=== PATIENT | male | born 1965 | race Hispanic/Latino ===

== ENCOUNTER 2018-06-18 17:47 | Emergency (ER) | payer BC ==
[~2018-06-18] VITALS: Ht 160 cm; Wt 85.7 kg
--- OUTSIDE RECORDS SUMMARY | 2018-06-18 17:50 | XMS REPORT ---
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 Allergies, Adverse Reactions, Alerts This patient has no known allergies or adverse reactions. Medications This patient has no known medications.
--- OUTSIDE RECORDS SUMMARY | 2018-06-18 17:50 | XMS REPORT | Summary of Care ---
Author Author [facility] Organization [facility] Address Unknown Phone Unavailable Encounter MARYLOU Anders(TONE) [id number] Date(s): 10/15/17 - 10/15/17 [facility] [address] [place] [address]- [phone] Encounter Diagnosis Paresthesia (Discharge Diagnosis) - 10/15/17 Discharge Disposition: Home or Self Care Attending Physician: Claire Lassiter MD Vital Signs 1 2 3 Most recent to oldest [Reference Range]: 98.4 DegF (10/15/17 12:44 PM) Temperature Oral [96.4-99.1 DegF] 140/93 mmHg (10/15/17 6:26 PM) 138/92 mmHg (10/15/17 5:30 PM) 145/101 mmHg *HI* (10/15/17 4:39 PM) Blood Pressure [90-140/60-90 mmHg] 23 BRMIN *HI* (10/15/17 6:26 PM) 23 BRMIN *HI* (10/15/17 5:30 PM) 21 BRMIN *HI* (10/15/17 4:39 PM) Respiratory Rate [14-20 BRMIN] 95 bpm (10/15/17 12:44 PM) Peripheral Pulse Rate [60-100 bpm] 81.818 kg (10/15/17 12:44 PM) Weight Problem List No data available for this section Allergies, Adverse Reactions, Alerts Substance Reaction Severity Status NKDA Active Medications Saline Flush 0.9% 10 mL, Route: IVP, Drug Form: INJ, Dosing Weight 81.818, kg, PRN, PRN Line Flush , Start date: 10/15/17 12:50:00 CDT, Duration: 30 day, Stop date: 11/14/17 12:49 :00 CDT Notes: (Same as: BD Posiflush) Start Date: 10/15/17 Stop Date: 10/15/17 Status: Discontinued Results ELECTROLYTES Most recent to 1 oldest [Reference Range]: Sodium Lvl [135-145 141 mEq/L mEq/L] (10/15/17 1:49 PM) Potassium Lvl 4.0 mEq/L [3.5-5.1 mEq/L] (10/15/17 1:49 PM) Chloride Lvl [95-109 105 mEq/L mEq/L] (10/15/17 1:49 PM) CO2 [24-32 mEq/L] 28 mEq/L (10/15/17 1:49 PM) AGAP [10.0-20.0 12.0 mEq/L mEq/L] (10/15/17 1:49 PM) CHEM PANEL Most recent to 1 oldest [Reference Range]: Creatinine Lvl 0.66 mg/dL [0.50-1.40 mg/dL] (10/15/17 1:49 PM) eGFR 112 mL/min/1.73m2 1 *NA* (10/15/17 1:49 PM) BUN [7-22 mg/dL] 16 mg/dL (10/15/17 1:49 PM) B/C Ratio [6-25] 24 (10/15/17 1:49 PM) Glucose Lvl [70-99 274 mg/dL mg/dL] *HI* (10/15/17 1:49 PM) Total Protein 7.0 g/dL [6.4-8.4 g/dL] (10/15/17 1:49 PM) Albumin Lvl [3.5-5.0 3.5 g/dL g/dL] (10/15/17 1:49 PM) Globulin [2.7-4.2 3.5 g/dL g/dL] (10/15/17 1:49 PM) A/G Ratio [0.7-1.6] 1.0 (10/15/17 1:49 PM) Calcium Lvl 8.6 mg/dL [8.5-10.5 mg/dL] (10/15/17 1:49 PM) ALT [0-65 unit/L] 30 unit/L (10/15/17 1:49 PM) AST [0-37 unit/L] 14 unit/L (10/15/17 1:49 PM) Alk Phos [39-136 154 unit/L unit/L] *HI* (10/15/17 1:49 PM) Bili Total [0.2-1.3 0.4 mg/dL mg/dL] (10/15/17 1:49 PM) 1Result Comment: The eGFR is calculated using the CKD-EPI formula. In most young, healthy individuals the eGFR will be >90 mL/min/1.73m2. The eGFR declines with age. An eGFR of 60-89 may be normal in some populations, particularly the elderly, for whom the CKD-EPI formula has not been extensively validated. Use of the eGFR is not recommended in the following populations: Individuals with unstable creatinine concentrations, including patients and those with serious co-morbid conditions. Patients with extremes in muscle mass or diet. The data above are obtained from the National Kidney Disease Education Program ( NKDEP) which additionally recommends that when the eGFR is used in patients with extremes of body mass index for purposes of drug dosing, the eGFR should be mul tiplied by the estimated BMI. CARDIAC ENZYMES Most recent to 1 oldest [Reference Range]: Total CK [12-191 68 unit/L unit/L] (10/15/17 1:49 PM) Troponin-I <0.02 ng/mL [0.00-0.40 ng/mL] (10/15/17 1:49 PM) URINE AND STOOL Most recent to 1 oldest [Reference Range]: UA Turbidity [Clear] Clear (10/15/17 4:16 PM) UA Color Ltyellow *NA* (10/15/17 4:16 PM) UA pH [5.0-8.0] 6.0 (10/15/17 4:16 PM) UA Spec Grav 1.025 [<=1.030] (10/15/17 4:16 PM) UA Glucose [Negative 500 mg/dL mg/dL] *ABN* (10/15/17 4:16 PM) UA Blood [Negative] Negative (10/15/17 4:16 PM) UA Ketones [Negative Negative mg/dL mg/dL] *NA* (10/15/17 4:16 PM) UA Protein [Negative Negative mg/dL mg/dL] (10/15/17 4:16 PM) UA Urobilinogen <=1.0 mg/dL [0.1-1.0 mg/dL] *NA* (10/15/17 4:16 PM) UA Bili [Negative] Negative *NA* (10/15/17 4:16 PM) UA Leuk Est Negative [Negative] (10/15/17 4:16 PM) UA Nitrite Negative [Negative] (10/15/17 4:16 PM) UA WBC [0-5 /HPF] <1 /HPF (10/15/17 4:16 PM) UA Sq Epi None Seen *NA* (10/15/17 4:16 PM) HEMATOLOGY Most recent to 1 oldest [Reference Range]: WBC [3.7-10.4 K/CMM] 7.8 K/CMM (10/15/17 1:49 PM) RBC [4.70-6.10 5.22 M/CMM M/CMM] (10/15/17 1:49 PM) Hgb [14.0-18.0 g/dL] 15.3 g/dL (10/15/17 1:49 PM) Hct [42.0-54.0 %] 45.8 % (10/15/17 1:49 PM) MCV [80.0-94.0 fL] 87.8 fL (10/15/17 1:49 PM) MCH [27.0-31.0 pg] 29.3 pg (10/15/17 1:49 PM) MCHC [32.0-36.0 33.4 g/dL g/dL] (10/15/17 1:49 PM) RDW [11.5-14.5 %] 13.6 % (10/15/17 1:49 PM) MPV [7.4-10.4 fL] 9.7 fL (10/15/17 1:49 PM) Platelet [133-450 217 K/CMM K/CMM] (10/15/17 1:49 PM) Segs [45.0-75.0 %] 53.4 % (10/15/17 1:49 PM) Lymphocytes 35.4 % [20.0-40.0 %] (10/15/17 1:49 PM) Monocytes [2.0-12.0 6.7 % %] (10/15/17 1:49 PM) Eosinophils [0.0-4.0 4.0 % %] (10/15/17 1:49 PM) Basophils [0.0-1.0 0.5 % %] (10/15/17 1:49 PM) Segs-Bands # 4.2 K/CMM [1.5-8.1 K/CMM] (10/15/17 1:49 PM) Lymphocytes # 2.8 K/CMM [1.0-5.5 K/CMM] (10/15/17 1:49 PM) Monocytes # [0.0-0.8 0.5 K/CMM K/CMM] (10/15/17 1:49 PM) Eosinophils # 0.3 K/CMM [0.0-0.5 K/CMM] (10/15/17 1:49 PM) RBC Morph Normal (10/15/17 1:49 PM) Plt Morph Normal (10/15/17 1:49 PM) PT [12.0-14.7 12.0 seconds seconds] (10/15/17 1:49 PM) INR [0.85-1.17] 0.89 (10/15/17 1:49 PM) PTT [22.9-35.8 29.2 seconds seconds] (10/15/17 1:49 PM) Immunizations No data available for this section Procedures No data available for this section Social History Social History Type Response Smoking Status Never smoker; Exposure to Tobacco Smoke None; Cigarette Smoking Last 365 Days No; Reg Smoking Cessation Counseling No entered on: 10/15/17 Assessment and Plan No data available for this section
--- OUTSIDE RECORDS SUMMARY | 2018-06-18 17:50 | XMS REPORT | Continuity of Care Document ---
Author Author [facility] Address Unknown Phone Unavailable Problems Problem Status Onset Date Classification Date Reported Comments Source IMBALANCE, RIGOBERTO CAROTID BRUITS Active 10/16/2017 [facility] Paresthesia 10/15/2017 10/18/2017 [facility] POSSIBLE STROKE Active 10/15/2017 [facility] RIGHT HAND Active 12/17/2016 [facility] [place] Medications Medication Details Route Status Patient Instructions Ordering Provider Order Date Source Saline Flush 0.9% 10 mL, Route: IVP, Drug Form: INJ, Dosing Weight 81.818, kg, PRN, PRN Line Flush, Start date: 10/15/17 12:50:00 CDT, Duration: 30 day, Stop date: 11/14/17 12:49:00 CDTNotes: (Same as: BD Posiflush) Inactive 10/15/2017 [facility] Allergies, Adverse Reactions, Alerts Substance Category Reaction Severity Reaction type Status Date Reported Comments Source Immunizations Immunization Date Given Site Status Last Updated Comments Source Results Order Name Results Value Reference Range Date Interpretation Comments Source Carotid artery Doppler bilat US Carotid artery Doppler bilat US Clinical Indication: - bruit; Comparison: None TECHNIQUE: Hurley-scale, color Doppler and spectral Doppler of the carotid arteries was performed. Any reported ICA stenoses indirectly reference the distal internal carotid diameter as the denominator for the stenosis measurement, utilizing consensus panel criteria. FINDINGS: RIGHT: No significant plaque ICA PSV 52 cm/sec CCA PSV 83 cm/sec ICA/CCA ratio 0.6 Vertebral flow is antegrade. External carotid artery is patent. LEFT: No significant plaque ICA PSV 46 cm/sec CCA PSV 84 cm/sec ICA/CCA ratio 0.6 Vertebral flow is antegrade. External carotid artery is patent. IMPRESSION: 1. RIGHT: ICA stenosis <50 % by velocity criteria. 2. LEFT: ICA stenosis <50 % by velocity criteria. Consensus panel Doppler US criteria for diagnosis of ICA stenosis: Stenosis (%) ICA PSV (cm/sec) ICA/CCA ratio <50 <125 <2.0 50-69 125-230 2.0-4.0 >70 but less than >230 >4.0 near occlusion Near occlusion High, low, or Variable undetectable : [id number] 10/19/2017 - - Read by: Fly Knox MD Dictated Date/time: 10/19/17 09:36 Electronically Signed by: Fly Knox MD 10/19/17 09:44 FINAL REPORT [facility] URINE AND STOOL UA Urobilinogen <=1.0 mg/dL 0.1 - 1.0 10/15/2017 [facility] URINE AND STOOL UA Color Ltyellow 10/15/2017 [facility] URINE AND STOOL UA Leuk Est Negative (10/15/17 4:16 PM) Negative 10/15/2017 [facility] URINE AND STOOL UA WBC null 0 - 5 10/15/2017 [facility] URINE AND STOOL UA Sq Epi None Seen 10/15/2017 [facility] URINE AND STOOL UA Nitrite Negative (10/15/17 4:16 PM) Negative 10/15/2017 [facility] URINE AND STOOL UA Bili Negative *NA* (10/15/17 4:16 PM) Negative 10/15/2017 [facility] URINE AND STOOL UA Blood Negative (10/15/17 4:16 PM) Negative 10/15/2017 [facility] URINE AND STOOL UA Glucose 500 mg/dL Negative mg/dL 10/15/2017 [facility] URINE AND STOOL UA pH 6.0 5.0 - 8.0 10/15/2017 [facility] URINE AND STOOL UA Spec Grav 1.025 <=1.030 10/15/2017 [facility] URINE AND STOOL UA Turbidity Clear (10/15/17 4:16 PM) Clear 10/15/2017 [facility] URINE AND STOOL UA Protein Negative mg/dL Negative mg/dL 10/15/2017 [facility] URINE AND STOOL UA Ketones Negative mg/dL Negative mg/dL 10/15/2017 [facility] CARDIAC ENZYMES Troponin-I null 0.00 - 0.40 10/15/2017 [facility] CARDIAC ENZYMES Total CK 68 unit/L 12 - 191 10/15/2017 [facility] ELECTROLYTES AGAP 12.0 meq/L 10.0 - 20.0 10/15/2017 [facility] ELECTROLYTES B/C Ratio 24 6 - 25 10/15/2017 [facility] ELECTROLYTES A/G Ratio 1.0 0.7 - 1.6 10/15/2017 [facility] ELECTROLYTES Globulin 3.5 g/dL 2.7 - 4.2 10/15/2017 [facility] Potassium Lvl 4.0 meq/L 3.5 - 5.1 10/15/2017 [facility] ELECTROLYTES Chloride Lvl 105 meq/L 95 - 109 10/15/2017 [facility] ELECTROLYTES Sodium Lvl 141 meq/L 135 - 145 10/15/2017 [facility] ELECTROLYTES Creatinine Lvl 0.66 mg/dL 0.50 - 1.40 10/15/2017 [facility] ELECTROLYTES BUN 16 mg/dL 7 - 22 10/15/2017 [facility] ELECTROLYTES Glucose Lvl 274 mg/dL 70 - 99 10/15/2017 [facility] ELECTROLYTES eGFR 112 mL/min/1.73m2 10/15/2017 Result Comment: The eGFR is calculated using the [...] from the National Kidney Disease Education Program (NKDEP) which additionally recommends that when the eGFR is used in patients with extremes of body mass index for purposes of drug dosing, the eGFR should be multiplied by the estimated BMI. [facility] ELECTROLYTES AST 14 unit/L 0 - 37 10/15/2017 [facility] ELECTROLYTES Alk Phos 154 unit/L 39 - 136 10/15/2017 [facility] ELECTROLYTES ALT 30 unit/L 0 - 65 10/15/2017 [facility] ELECTROLYTES Bili Total 0.4 mg/dL 0.2 - 1.3 10/15/2017 [facility] Total Protein 7.0 g/dL 6.4 - 8.4 10/15/2017 [facility] ELECTROLYTES CO2 28 meq/L 24 - 32 10/15/2017 [facility] ELECTROLYTES Calcium Lvl 8.6 mg/dL 8.5 - 10.5 10/15/2017 [facility] ELECTROLYTES Albumin Lvl 3.5 g/dL 3.5 - 5.0 10/15/2017 [facility] HEMATOLOGY PTT 29.2 s 22.9 - 35.8 10/15/2017 [facility] PT 12.0 s 12.0 - 14.7 10/15/2017 [facility] INR 0.89 0.85 - 1.17 10/15/2017 [facility] MCH 29.3 pg 27.0 - 31.0 10/15/2017 [facility] Hgb 15.3 g/dL 14.0 - 18.0 10/15/2017 [facility] MCV 87.8 fL 80.0 - 94.0 10/15/2017 [facility] Hct 45.8 % 42.0 - 54.0 10/15/2017 [facility] Platelet 217 K/CMM 133 - 450 10/15/2017 [facility] MPV 9.7 fL 7.4 - 10.4 10/15/2017 [facility] MCHC 33.4 g/dL 32.0 - 36.0 10/15/2017 [facility] RDW 13.6 % 11.5 - 14.5 10/15/2017 [facility] WBC 7.8 K/CMM 3.7 - 10.4 10/15/2017 [facility] RBC 5.22 M/CMM 4.70 - 6.10 10/15/2017 [facility] Eosinophils # 0.3 K/CMM 0.0 - 0.5 10/15/2017 [facility] Monocytes # 0.5 K/CMM 0.0 - 0.8 10/15/2017 [facility] Lymphocytes # 2.8 K/CMM 1.0 - 5.5 10/15/2017 [facility] Segs-Bands # 4.2 K/CMM 1.5 - 8.1 10/15/2017 [facility] Basophils 0.5 % 0.0 - 1.0 10/15/2017 [facility] Eosinophils 4.0 % 0.0 - 4.0 10/15/2017 [facility] Monocytes 6.7 % 2.0 - 12.0 10/15/2017 [facility] Lymphocytes 35.4 % 20.0 - 40.0 10/15/2017 [facility] HEMATOLOGY Segs 53.4 % 45.0 - 75.0 10/15/2017 [facility] HEMATOLOGY Plt Morph Normal (10/15/17 1:49 PM) 10/15/2017 [facility] HEMATOLOGY RBC Morph Normal (10/15/17 1:49 PM) 10/15/2017 [facility] Chest 1view DX Chest 1view DX Clinical Indication: - stroke eval. Right-sided numbness. Comparison: None. TECHNIQUE: AP 1 view chest radiograph was performed. FINDINGS: LUNGS: Normal lung volumes. No interstitial or airspace opacities. No pleural effusions or pneumothorax. HEART AND MEDIASTINUM: The heart size is normal. The pulmonary vasculature is normal. The mediastinal contour is normal. The trachea is midline. OSSEOUS STRUCTURES: No acute abnormality seen. IMPRESSION: 1. No AP chest radiographic evidence of acute cardiopulmonary disease. SL: [id number] 10/15/2017 - - Read by: Mauricio Mistry MD Dictated Date/time: 10/15/17 13:55 Electronically Signed by: Mauricio Mistry MD 10/15/17 13:56 FINAL REPORT [facility] Brain wo contrast CT Brain wo contrast CT Study: Brain wo contrast CT 10/15/2017 12:50 PM CDT Ordering Physician: Jorge Curtis Clinical Indication: 52-year-old with RUE/RLE paresthesias beginning 2 days ago. Past medical history significant for diabetes. Comparison: April 17, 2009 TECHNIQUE: CT images are obtained from the foramen magnum to the vertex on a multidetector CT. Sagittal and coronal reformats are acquired. CT radiation dose DLP: 982 mGy-cm. FINDINGS: Ventricles, sulci and basal cisterns are within normal limits for age. The hurley- white junction is intact. No encephalomalacic changes are seen. Mild bilateral cavernous ICA and intradural left vertebral artery calcifications are seen. There is no evidence for intracranial mass, mass effect or extra-axial fluid collection. There is no evidence for intracranial hemorrhage. The skull is intact. Visualized paranasal sinuses are clear. Mastoid air cells are clear. Orbital structures are grossly unremarkable. IMPRESSION: Unremarkable computed tomography scan of the brain without contrast. SL: [id number] 10/15/2017 - - Read by: Dana Sierra MD Dictated Date/time: 10/15/17 13:28 Electronically Signed by: Dana Sierra MD 10/15/17 13:32 FINAL REPORT [facility] Vital Signs Vital Sign Value Date Comments Source Systolic (mm Hg) 140 10/15/2017 [facility] Diastolic (mm Hg) 93 10/15/2017 [facility] Respitory Rate 23 10/15/2017 [facility] Systolic (mm Hg) 138 10/15/2017 [facility] Diastolic (mm Hg) 92 10/15/2017 [facility] Respitory Rate 23 10/15/2017 [facility] Systolic (mm Hg) 145 10/15/2017 [facility] Diastolic (mm Hg) 101 10/15/2017 [facility] Respitory Rate 21 10/15/2017 [facility] Heart Rate 95 10/15/2017 [facility] Temperature Oral (F) 98.4 F 10/15/2017 [facility] Weight 81.818 10/15/2017 [facility] Encounters Location Location Details Encounter Type Encounter Number Reason For Visit Attending Provider ADM Date DC Date Status Source [facility] Emergency [id number] Claire Lassiter 10/15/2017 10/15/2017 [facility] Outpatient [id number] Kaur Ceja 10/19/2017 10/20/2017 [facility] Procedures Procedure Code Date Perfomer Comments Source
--- OUTSIDE RECORDS SUMMARY | 2018-06-18 17:50 | XMS REPORT | Summary of Care ---
Author Author [facility] Organization [facility] Address Unknown Phone Unavailable Encounter [facility] Encntr_[id number](FIN) [id number] Date(s): 10/19/17 - 10/19/17 [facility] [address] [place] [address]- Discharge Disposition: Home or Self Care Attending Physician: Kaur Ceja MD Referring Physician: Kaur Ceja MD Vital Signs No data available for this section Problem List No data available for this section Allergies, Adverse Reactions, Alerts Substance Reaction Severity Status NKDA Active Medications No data available for this section Results No data available for this section Immunizations No data available for this section Procedures No data available for this section Social History Social History Type Response Smoking Status Never smoker; Exposure to Tobacco Smoke None; Cigarette Smoking Last 365 Days No; Reg Smoking Cessation Counseling No entered on: 10/15/17 Assessment and Plan No data available for this section
--- OUTSIDE RECORDS SUMMARY | 2018-06-18 17:50 | XMS REPORT | Clinical Summary ---
Author Author [facility] Organization [facility] Address Unknown Phone Unavailable Care Team Providers Care Service Architect Name Role Phone eMlly Ceja MD PCP Allergies No Known Allergies Medications End Date Status Medication Sig Dispensed Refills Start Date 10/05/2017 ciprofloxacin (CIPRO) 500 Take 1 tablet 20 tablet 0 09/25/201 MG tablet (500 mg 8 total) by mouth 2 (two) times a day for 10 days. 10/05/2017 metroNIDAZOLE (FLAGYL) Take 1 tablet 30 tablet 0 500 MG tablet (500 mg 8 total) by mouth 3 (three) times a day for 10 days. 10/02/2017 prochlorperazine Take 1 tablet 12 tablet 0 (COMPAZINE) 10 MG tablet (10 mg total) 8 by mouth 2 (two) times a day as needed for nausea or vomiting for up to 7 days. Active Problems Not on file Encounters Care Team Description Date Type Specialty Rigo Velazquez MD Colitis (Primary Dx) 09/25/2017 Emergency Emergency Medicine after 06/17/2017 Social History Date Tobacco Use Types Packs/Day Years Used Never Smoker Smokeless Tobacco: Never Used Sex Assigned at Date Recorded Not on file Industry Job Start Date Occupation Not on file Not on file Not on file Travel End Travel History Travel Start No recent travel history available. Last Filed Vital Signs Time Taken Vital Sign Reading 09/25/2017 4:45 PM CDT Blood Pressure 136/90 09/25/2017 4:45 PM CDT Pulse 96 09/25/2017 12:01 PM CDT Temperature 36.9 C (98.4 F) 09/25/2017 4:45 PM CDT Respiratory Rate 16 09/25/2017 4:45 PM CDT Oxygen Saturation 97% - Inhaled Oxygen - Concentration 09/25/2017 12:01 PM CDT Weight 82.1 kg (181 lb) 09/25/2017 12:01 PM CDT Height 162.6 cm (5' 4") 09/25/2017 12:01 PM CDT Body Mass Index 31.07 Plan of Treatment Health Maintenance Due Date Last Done Comments COLON CANCER SCREENING 01/09/2016 SHINGLES VACCINES (1 of 01/09/2016 2) INFLUENZA VACCINE 12/09/2017 Procedures Comments Procedure Name Priority Date/Time Associated Diagnosis CT ABDOMEN PELVIS W STAT 09/25/2017 CONTRAST 3:44 PM CDT LIPASE LEVEL Routine 09/25/2017 2:15 PM CDT COMPREHENSIVE METABOLIC Routine 09/25/2017 PANEL 2:15 PM CDT ZZESTIMATED GFR Routine 09/25/2017 2:15 PM CDT HC COMPLETE BLD COUNT STAT 09/25/2017 W/AUTO DIFF 1:21 PM CDT after 06/17/2017 Results * CT Abdomen Pelvis W Contrast (09/25/2017 3:44 PM CDT) Narrative Performed At EXAMINATION:CT ABDOMEN PELVIS W CONTRAST [facility] CLINICAL HISTORY: 52 yearsMale abdominal pain TECHNIQUE: Multiple axial images of the abdomen and pelvis were obtained following intravenous administration of iodinated contrast. Sagittal and coronal computerized reformatted images were also obtained. CT imaging was performed with iterative reconstruction techniques and/or automated exposure control to reduce radiation dose. COMPARISON:None. Findings: There is mild groundglass attenuation in the lingula which is which is consistent with scar unchanged from March 06, 2016 The liver and spleen appear normal in size and homogeneous in texture. The adrenal glands, gallbladder pancreas appear unremarkable. The kidneys are not obstructed. There is a cyst along the medial upper pole of the left kidney measuring 14 mm in diameter. The appendix appears normal. There is no free fluid noted. There is no mass or adenopathy identified. The prostate is not grossly abnormal. The bladder appears unremarkable. There appear to be metallic clips in the right hemipelvis. There is no definite inflammatory change involving bowel although the possibility of mild stranding around the sigmoid is raised. This is a minimal finding and indeed questionable. The gut is not opacified with contrast limiting evaluation. Apparent intraspinal stimulating device is noted with the pocket over the right gluteal area Impression: 1. Mild to moderate gas and stool present in the colon. 2. The appendix appears normal 3. Questionable mild stranding around the sigmoid colon which could represent colitis/diverticulitis this is not definitive. [id number] Procedure Note Hm Interface, Radiology Results Incoming - 09/25/2017 4:22 PM CDT EXAMINATION: CT ABDOMEN PELVIS W CONTRAST CLINICAL HISTORY: 52 yearsMale abdominal pain TECHNIQUE: Multiple axial images of the abdomen and pelvis were obtained following intravenous administration of iodinated contrast. Sagittal and coronal computerized reformatted images were also obtained. CT imaging was performed with iterative reconstruction techniques and/or automated exposure control to reduce radiation dose. COMPARISON: None. Findings: There is mild groundglass attenuation in the lingula which is which is consistent with scar unchanged from March 06, 2016 The liver and spleen appear normal in size and homogeneous in texture. The adrenal glands, gallbladder pancreas appear unremarkable. The kidneys are not obstructed. There is a cyst along the medial upper pole of the left kidney measuring 14 mm in diameter. The appendix appears normal. There is no free fluid noted. There is no mass or adenopathy identified. The prostate is not grossly abnormal. The bladder appears unremarkable. There appear to be metallic clips in the right hemipelvis. There is no definite inflammatory change involving bowel although the possibility of mild stranding around the sigmoid is raised. This is a minimal finding and indeed questionable. The gut is not opacified with contrast limiting evaluation. Apparent intraspinal stimulating device is noted with the pocket over the right gluteal area Impression: 1. Mild to moderate gas and stool present in the colon. 2. The appendix appears normal 3. Questionable mild stranding around the sigmoid colon which could represent colitis/diverticulitis this is not definitive. [id number] Performing Organization Address City/State/Zipcode Phone Number [facility] [address] [place] [address] * Estimated GFR (09/25/2017 2:15 PM CDT) GFR Non Af Amer >90 mL/min/1.[address] [facility] DEPARTMENT OF PATHOLOGY AND GENOMIC MEDICINE GFR Af Amer >90 mL/min/1.[address] [facility] DEPARTMENT OF Comment: PATHOLOGY AND Chronic kidney disease: <60 GENOMIC MEDICINE mL/min/1.73m2 Kidney failure: <15 mL/min/1.73m2 The estimated GFR is calculated from the IDMS-traceable Modification of Diet in Renal Disease Equation. The accuracy of the calculation is poor when the creatinine is normal. Calculated values >90 mL/min/1.73m2 are not reported. This equation has not been validated in children (<18 years), women, the elderly (>70 years), or ethnic groups other than Caucasians and Americans. Specimen Plasma specimen Performing Organization Address City/[facility] Phone Number [address] * Lipase level (09/25/2017 2:15 PM CDT) Lipase 17 13 - 60 U/L [facility] PATHOLOGY [facility] [employer] [facility] Specimen Plasma specimen Performing Organization Address [facility] Phone Number [address] [place] [address] PATHOLOGY [facility] [employer] [facility] * Comprehensive metabolic panel (09/25/2017 2:15 PM CDT) Sodium 138 135 - 148 mEq/L [facility] DEPARTMENT OF PATHOLOGY AND GENOMIC MEDICINE Potassium 3.7 3.5 - 5.0 mEq/L [facility] DEPARTMENT OF PATHOLOGY AND GENOMIC MEDICINE Chloride 101 98 - 112 mEq/L [facility] DEPARTMENT OF PATHOLOGY AND GENOMIC MEDICINE CO2 23 (L) 24 - 31 mEq/L [facility] DEPARTMENT OF PATHOLOGY AND GENOMIC MEDICINE Anion gap 14@ANIO 7 - 15 mEq/L [facility] DEPARTMENT OF PATHOLOGY AND GENOMIC MEDICINE BUN 17 6 - 20 mg/dL [facility] DEPARTMENT OF PATHOLOGY AND GENOMIC MEDICINE Creatinine 0.6 (L) 0.7 - 1.2 mg/dL [facility] DEPARTMENT OF PATHOLOGY AND GENOMIC MEDICINE Glucose 217 (H) 65 - 99 mg/dL [facility] DEPARTMENT OF PATHOLOGY AND GENOMIC MEDICINE Calcium 9.3 8.3 - 10.2 mg/dL [facility] DEPARTMENT OF PATHOLOGY AND GENOMIC MEDICINE Protein 6.9 6.3 - 8.3 g/dL [facility] DEPARTMENT OF Comment: PATHOLOGY AND [place] GENOMIC MEDICINE 4.6-7.0 g/dL 1 week 4.4-7.6 g/dL 7 months-1year 5.1-7.3 g/dL 1-2 years5.6-7 .5 g/dL >3 years6.0-8 .0 g/dL 18-150 6.3-8.3 g/dL Albumin 4.2 3.5 - 5.0 g/dL [facility] DEPARTMENT PATHOLOGY AND GENOMIC MEDICINE A/G ratio 1.6 0.7 - 3.8 [facility] DEPARTMENT OF PATHOLOGY AND GENOMIC MEDICINE Alkaline phosphatase 153 (H) 40 - 129 U/L [facility] DEPARTMENT OF PATHOLOGY AND GENOMIC MEDICINE AST 14 10 - 50 U/L [facility] DEPARTMENT OF PATHOLOGY AND GENOMIC MEDICINE ALT 18 5 - 50 U/L [facility] PATHOLOGY AND GENOMIC MEDICINE Total bilirubin 0.5 0.0 - 1.2 mg/dL [facility] OF PATHOLOGY AND GENOMIC MEDICINE Specimen Plasma specimen Performing Organization Address City/State/Zipcode Phone Number [address] [place] [address] PATHOLOGY AND GENOMIC MEDICINE * CBC with platelet and differential (09/25/2017 1:21 PM CDT) WBC 8.73 4.50 - 11.00 k/uL [facility] DEPARTMENT OF PATHOLOGY AND GENOMIC MEDICINE RBC 5.29 4.40 - 6.00 m/uL [facility] PATHOLOGY AND GENOMIC MEDICINE HGB 15.6 14.0 - 18.0 g/dL [facility] DEPARTMENT PATHOLOGY AND GENOMIC MEDICINE HCT 46.9 41.0 - 51.0 % [facility] DEPARTMENT OF PATHOLOGY AND GENOMIC MEDICINE MCV 88.7 82.0 - 100.[address] [facility] DEPARTMENT OF PATHOLOGY AND GENOMIC MEDICINE MCH 29.5 27.0 - 34.[address] [facility] DEPARTMENT OF PATHOLOGY AND GENOMIC MEDICINE MCHC 33.3 31.0 - 37.0 g/dL [facility] DEPARTMENT OF PATHOLOGY AND GENOMIC MEDICINE RDW - SD 40.6 37.0 - 55.[address] [facility] DEPARTMENT OF PATHOLOGY AND GENOMIC MEDICINE MPV 11.1 8.8 - 13.[address] [facility] DEPARTMENT OF PATHOLOGY AND GENOMIC MEDICINE Platelet count 229 150 - 400 k/uL [facility] DEPARTMENT OF PATHOLOGY AND GENOMIC MEDICINE Nucleated RBC 0.00 /[address] [facility] DEPARTMENT OF PATHOLOGY AND GENOMIC MEDICINE Neutrophils 67.3 39.0 - 69.0 % [facility] DEPARTMENT OF PATHOLOGY AND GENOMIC MEDICINE Lymphocytes 24.2 (L) 25.0 - 45.0 % [facility] DEPARTMENT OF PATHOLOGY AND GENOMIC MEDICINE Monocytes 5.8 0.0 - 10.0 % [facility] DEPARTMENT OF PATHOLOGY AND GENOMIC MEDICINE Eosinophils 1.8 0.0 - 5.0 % [facility] DEPARTMENT OF PATHOLOGY AND GENOMIC MEDICINE Basophils 0.6 0.0 - 1.0 % [facility] DEPARTMENT OF PATHOLOGY AND GENOMIC MEDICINE Specimen Blood Performing Organization Address City/State/Zipcode Phone Number [facility] [address] [place] [address] PATHOLOGY AND GENOMIC MEDICINE after 06/17/2017 Insurance Payer Benefit Subscriber ID Type Phone Address Plan / Group BCBS BCBS xxxxxxxxxxxx PPO CHOICE PPO/VALENCIA LEE PPO Advance Directives Patient has advance care planning documents on file. For more information, una barnett contact: Grey Franks [address] [place] [address]
[2018-06-18] MEDS ORDERED: ONDANSETRON HCL INJ 2MG/ML 2ML 2 MG/ML VIAL IV STA (18:29)
[2018-06-18] MEDS ORDERED: SODIUM CHLORIDE 0.9% 1000ML 1,000 ML IV SCH (18:30)
[2018-06-18] MEDS ORDERED: SODIUM CHLORIDE 0.9% 1000ML 1,000 ML IV STA (19:09)
[2018-06-18] MEDS ORDERED: INSULIN REGULAR, HUMAN 100 UNIT/1 ML 3ML VIAL IV ONE (19:15)
[2018-06-18] MEDS ORDERED: FAMOTIDINE 20 MG/2 ML VIAL IV ONE (19:15)
--- NOTE | 2018-06-18 20:54 | Diagnostic Imaging Report ---
EXAM: CT Abdomen and Pelvis WITH contrast INDICATION: Pain COMPARISON: None. TECHNIQUE: Abdomen and Pelvis was scanned utilizing a multidetector helical scanner after administration of IV contrast. Coronal and sagittal reformations were obtained. IV CONTRAST: 100 mL Isovue-370 COMPLICATIONS: None RADIATION DOSE: Total DLP:784 mGy*cm Estimated effective dose: (DLP x 0.015 x size factor) mSv CTDIvol has been reviewed. It is below the limits set by the Radiation Protocol Committee (RPC). Appropriate CT dose reduction techniques were utilized. FINDINGS: Abdomen: Lung Bases: Atelectasis. Solid Organs: Cyst left kidney. Otherwise, solid organs unremarkable. Upper GI Tract: No small bowel obstructive changes. Vascularity: No aortic aneurysm. Lymph Nodes: No suspicious adenopathy. Other: Minimal skin thickening ventral abdominal wall asymmetric to the left with underlying stranding possibly sequela of injections. Pelvis: Bladder: Unremarkable. Other: Stimulator right gluteal region. Colon: No acute colonic findings. Appendix not inflamed. Bones: No acute findings. IMPRESSION: 1. No definite acute finding within the abdomen or pelvis. Please see above for full details. Signed by: Dr. Abraham Kohler MD on 06/18/2018 8:51 PM
== END 2018-06-18 21:40 | disposition home or self-care (01) ==
LOC: FSED 17:47
DX: R10.31 Right lower quadrant pain (principal); R11.2 Nausea with vomiting, unspecified; K52.1 Toxic gastroenteritis and colitis; K29.00 Acute gastritis without bleeding
CPT/HCPCS: 74177; 80048; 80076; 81003; 82553; 84484; 85025; 93005; 99284; J1817; J2405; J7030

== ENCOUNTER 2018-07-09 17:24 | Emergency (ER) | payer BC ==
[~2018-07-09] VITALS: Ht 160 cm; Wt 85.7 kg
--- OUTSIDE RECORDS SUMMARY | 2018-07-09 17:27 | XMS REPORT | Clinical Summary ---
Author Author [facility] Organization [facility] Address Unknown Phone Unavailable Care Team Providers Care Nicker Name Role Phone Melly Ceja MD PCP Allergies No Known Allergies [...] (Primary Dx) 09/25/2017 Emergency Emergency Medicine after 07/08/2017 Social History Date Tobacco Use Types Packs/Day [...] Comments COLON CANCER SCREENING 01/09/2016 SHINGLES VACCINES (#1) 01/09/2016 INFLUENZA VACCINE 12/09/2017 Procedures Comments Procedure Name Priority Date/Time Associated Diagnosis CT ABDOMEN PELVIS W STAT 09/25/2017 CONTRAST 3:44 PM CDT LIPASE LEVEL Routine 09/25/2017 2:15 PM CDT COMPREHENSIVE METABOLIC Routine 09/25/2017 PANEL 2:15 PM CDT ZZESTIMATED GFR Routine 09/25/2017 2:15 PM CDT HC COMPLETE BLD COUNT STAT 09/25/2017 W/AUTO DIFF 1:21 PM CDT after 07/08/2017 Results * CT Abdomen Pelvis W Contrast [...] could represent colitis/diverticulitis this is not definitive. [id number] Procedure Note Hm Interface, Radiology Results Incoming [...] could represent colitis/diverticulitis this is not definitive. [id number] Performing Organization Address City/State/Zipcode Phone Number [facility] [address] [place] [address] * Estimated GFR (09/25/2017 2:15 PM CDT) GFR Non Af Amer >90 mL/min/1.73 m2 [facility] DEPARTMENT OF PATHOLOGY AND GENOMIC MEDICINE GFR Af Amer >90 mL/min/1.73 m2 [facility] DEPARTMENT OF Comment: PATHOLOGY AND Chronic kidney [...] Americans. Specimen Plasma specimen Performing Organization Address City/[facility] Cent[facility] Phone Number [address] * Lipase level (09/25/2017 2:15 PM CDT) Lipase 17 13 - 60 U/L [facility] PATHOLOGY [facility] [employer] [facility] Specimen Plasma specimen Performing Organization Address [facility] Phone Number [address] [place] [address] PATHOLOGY [facility] [employer] [facility] * Comprehensive metabolic panel (09/25/2017 2:15 PM CDT) Sodium 138 135 - 148 mEq/L [facility] DEPARTMENT OF PATHOLOGY AND GENOMIC MEDICINE Potassium 3.7 3.5 - 5.0 mEq/L [facility] DEPARTMENT OF PATHOLOGY AND GENOMIC MEDICINE Chloride 101 98 - 112 mEq/L [facility] DEPARTMENT OF PATHOLOGY AND GENOMIC MEDICINE CO2 23 (L) 24 - 31 mEq/L [facility] DEPARTMENT OF PATHOLOGY AND GENOMIC MEDICINE Anion gap 14@ANIO 7 - 15 mEq/L [facility] DEPARTMENT OF PATHOLOGY AND GENOMIC MEDICINE BUN 17 6 - 20 mg/dL [facility] DEPARTMENT OF PATHOLOGY AND GENOMIC MEDICINE Creatinine 0.6 (L) 0.7 - 1.2 mg/dL [facility] DEPARTMENT OF PATHOLOGY AND GENOMIC MEDICINE Glucose 217 (H) 65 - 99 mg/dL [facility] DEPARTMENT OF PATHOLOGY AND GENOMIC MEDICINE Calcium 9.3 8.3 - 10.2 mg/dL [facility] DEPARTMENT OF PATHOLOGY AND GENOMIC MEDICINE Protein 6.9 6.3 - 8.3 g/dL [facility] DEPARTMENT OF Comment: PATHOLOGY AND [place] GENOMIC MEDICINE 4.6-7.0 g/dL 1 week 4.4-7.6 g/dL 7 months-1year 5.1-7.3 g/dL 1-2 years5.6-7 .5 g/dL >3 years6.0-8 .0 g/dL 18-150 6.3-8.3 g/dL Albumin 4.2 3.5 - 5.0 g/dL [facility] DEPARTMENT PATHOLOGY AND GENOMIC MEDICINE A/G ratio 1.6 0.7 - 3.8 [facility] OF PATHOLOGY AND GENOMIC MEDICINE Alkaline phosphatase 153 (H) 40 - 129 U/L [facility] DEPARTMENT OF PATHOLOGY AND GENOMIC MEDICINE AST 14 10 - 50 U/L [facility] DEPARTMENT OF PATHOLOGY AND GENOMIC MEDICINE ALT 18 5 - 50 U/L [facility] PATHOLOGY AND GENOMIC MEDICINE Total bilirubin 0.5 0.0 - 1.2 mg/dL [facility] OF PATHOLOGY AND GENOMIC MEDICINE Specimen Plasma specimen Performing Organization Address City/State/Zipcode Phone Number [address] [place] [address] PATHOLOGY AND GENOMIC MEDICINE * CBC with platelet and differential (09/25/2017 1:21 PM CDT) WBC 8.73 4.50 - 11.00 k/uL [facility] DEPARTMENT OF PATHOLOGY AND GENOMIC MEDICINE RBC 5.29 4.40 - 6.00 m/uL [facility] PATHOLOGY AND GENOMIC MEDICINE HGB 15.6 14.0 - 18.0 g/dL [facility] DEPARTMENT PATHOLOGY AND GENOMIC MEDICINE HCT 46.9 41.0 - 51.0 % [facility] DEPARTMENT OF PATHOLOGY AND GENOMIC MEDICINE MCV 88.7 82.0 - 100.0 fL [facility] DEPARTMENT OF PATHOLOGY AND GENOMIC MEDICINE MCH 29.5 27.0 - 34.0 pg [facility] DEPARTMENT OF PATHOLOGY AND GENOMIC MEDICINE MCHC 33.3 31.0 - 37.0 g/dL [facility] DEPARTMENT OF PATHOLOGY AND GENOMIC MEDICINE RDW - SD 40.6 37.0 - 55.0 fL [facility] DEPARTMENT OF PATHOLOGY AND GENOMIC MEDICINE MPV 11.1 8.8 - 13.2 fL [facility] DEPARTMENT OF PATHOLOGY AND GENOMIC MEDICINE Platelet count 229 150 - 400 k/uL [facility] DEPARTMENT OF PATHOLOGY AND GENOMIC MEDICINE Nucleated RBC 0.00 /100 WBC [facility] DEPARTMENT OF PATHOLOGY AND GENOMIC MEDICINE Neutrophils 67.3 39.0 - 69.0 % [facility] DEPARTMENT OF PATHOLOGY AND GENOMIC MEDICINE Lymphocytes 24.2 (L) 25.0 - 45.0 % [facility] DEPARTMENT OF PATHOLOGY AND GENOMIC MEDICINE Monocytes 5.8 0.0 - 10.0 % [facility] DEPARTMENT OF PATHOLOGY AND GENOMIC MEDICINE Eosinophils 1.8 0.0 - 5.0 % [facility] DEPARTMENT OF PATHOLOGY AND GENOMIC MEDICINE Basophils 0.6 0.0 - 1.0 % [facility] DEPARTMENT OF PATHOLOGY AND GENOMIC MEDICINE Specimen Blood Performing Organization Address City/State/Zipcode Phone Number [facility] [address] [place] [address] PATHOLOGY AND GENOMIC MEDICINE after 07/08/2017 Insurance Payer Benefit Subscriber ID Type Phone Address Plan / Group BCBS BCBS xxxxxxxxxxxx PPO CHOICE PPO/VALENCIA LEE PPO Advance Directives Patient has advance care planning documents on file. For more information, una barnett contact: Grey Franks [address] [place] [address]
[2018-07-09] MEDS ORDERED: SODIUM CHLORIDE 0.9% 1000ML 1,000 ML IV STA ×2 (17:33→18:02)
[2018-07-09] MEDS ORDERED: FAMOTIDINE 20 MG/2 ML VIAL IV ONE (17:45)
[2018-07-09] MEDS ORDERED: ONDANSETRON HCL INJ 2MG/ML 2ML 2 MG/ML VIAL IV ONE (17:45)
[2018-07-09] MEDS ORDERED: PROMETHAZINE 12.5MG/ NACL 0.9% 12.5 MG/50 ML BAG IV ONE (18:15)
== END 2018-07-09 19:50 | disposition home or self-care (01) ==
LOC: FSED 17:24
DX: R11.2 Nausea with vomiting, unspecified (principal); K29.00 Acute gastritis without bleeding
CPT/HCPCS: 36415; 80048; 80076; 81003; 83690; 85025; 99284; J2405; J2550; J7030